=== PATIENT | male | born 1980 | race Caucasian/White ===

== ENCOUNTER 2019-02-14 14:19 | Emergency (ER) | payer MEDICAID, OTHER ==
[~2019-02-14] VITALS: Ht 170.2 cm; Wt 114.4 kg
[2019-02-14 14:38] VITALS: BP 154/80; RESP 67; Ht 170.2 cm; Wt 114.4 kg
[2019-02-14] MEDS ORDERED: SULF1TAB31 PO (14:58)
[2019-02-14] MEDS ORDERED: CEPH-443 PO (14:58)
--- NOTE | 2019-02-14 15:13 | ERD ---
ER Documentation Chief Complaint Chief Complaint pt has bumps on head causing pain HPI 38-year-old male presenting with a bump on the back of his head. He states he has had multiple of these bumps and he has been lancing and with clean razors however one appears to have gotten infected. He is a meth user currently taking methadone. No other medical problems. NKDA. Surgical he history denies. Social history denies ROS All systems reviewed and are negative except as per history of present illness. Medications Home Meds Active Scripts Cephalexin* (Keflex*) 500 Mg Capsule, 500 MG PO QID for 7 Days, CAP Prov:AGUILA TAVERAS PA-C 02/14/19 Sulfamethoxazole/Trimethoprim* (Bactrim Ds* Tablet) 1 Each Tablet, 1 TAB PO BID, #14 TAB Prov:AGUILA TAVERAS PA-C 02/14/19 Allergies Allergies: Coded Allergies: No Known Allergy (Unverified , 02/14/19) PMhx/Soc Hx Alcohol Use: No Hx Substance Use: No Hx Tobacco Use: No FmHx Family History: No diabetes, No coronary disease, No other Physical Exam Vitals Vital Signs Date Temp Pulse Resp B/P (MAP) Pulse Ox O2 O2 Flow FiO2 Time Delivery Rate 02/14/19 98.7 67 154/80 100 14:38 (104) Physical Exam GENERAL: The patient is well-appearing, well-nourished, in no acute distress HEENT: Atraumatic. Conjunctivae are pink. Pupils equal, round, and reactive to light. There is no scleral icterus. Tympanic membranes clear bilaterally. Oropharynx clear. CHEST: Clear to auscultation bilaterally. There are no rales, wheezes or rhonchi. HEART: Regular rate and rhythm. No murmurs, clicks, rubs or gallops. SKIN: Erythematous site noted to the occipital scalp with mild induration. No fluctuance. Procedures/MDM MDM: 38-year-old male presenting with folliculitis. Patient will be discharged with antibiotics. I have low suspicion for life-threatening rash. I have low suspicion for deep tracking infection. Patient is discharged with strict ER precautions and told to follow-up with primary care within 1 to 2 days for close evaluation. Patient is told if symptoms change or worsen to return to the ER. All questions answered at discharge Departure Diagnosis: Primary Impression: Folliculitis Condition: Stable Patient Instructions: Folliculitis Referrals: [facility] YOU HAVE RECEIVED A MEDICAL SCREENING EXAM AND THE RESULTS INDICATE THAT YOU DO NOT HAVE A CONDITION THAT REQUIRES URGENT TREATMENT IN THE EMERGENCY DEPARTMENT. FURTHER EVALUATION AND TREATMENT OF YOUR CONDITION CAN WAIT UNTIL YOU ARE SEEN IN YOUR DOCTORS OFFICE WITHIN THE NEXT 1-2 DAYS. IT IS YOUR RESPONSIBILITY TO MAKE AN APPOINTMENT FOR FOLOW-UP CARE. IF YOU HAVE A PRIMARY DOCTOR --you should call your primary doctor and schedule an appointment IF YOU DO NOT HAVE A PRIMARY DOCTOR YOU CAN CALL OUR PHYSICIAN REFERRAL HOTLINE AT IF YOU CAN NOT AFFORD TO SEE A PHYSICIAN YOU CAN CHOSE FROM THE FOLLOWING [facility] [address] [facility] [address] [facility] [address] [facility] [address] [facility] [address] [facility]. [facility] [address] Additional Instructions: FOLLOW UP WITH YOUR PRIMARY CARE PHYSICIAN TOMORROW.Return to this facility if you are not improving as expected. AGUILA TAVERAS PA-C Feb 14, 2019 15:13
== END 2019-02-14 15:22 | disposition home or self-care (01) ==
LOC: FTE 14:19
DX: L73.9 Follicular disorder, unspecified (principal)
CPT/HCPCS: 99283

== ENCOUNTER 2019-03-05 19:07 | Emergency (ER) | payer OTHER ==
[~2019-03-05] VITALS: Ht 170.2 cm; Wt 120.4 kg
[~2019-03-05 19:07] MED LIST: CEPH-443 PO; SULF1TAB31 PO
[2019-03-05 19:12] VITALS: BP 161/79; PULSE 89; RESP 18; Ht 170.2 cm; Wt 120.4 kg
[2019-03-05] MEDS ORDERED: DIPHTH/TET/ACEL PERTUSS (ADULT) 0.5 ML VIAL IM* ONE (21:00)
[2019-03-05] MEDS ORDERED: LIDOCAINE 1% (MPF) 5 ML VIAL INFIL ONE (21:00)
--- NOTE | 2019-03-06 00:17 | ERD ---
ER Documentation Chief Complaint Chief Complaint R thumb lac today HPI History of Present Illness: 39-year-old male who reports a past medical history of asthma coming in today with complaint of laceration to right thumb that occurred at approximately 1830. Patient reports this happened at approximately 1830 a.m. while he was asleep. Patient reports being incoherent and excellently cutting himself with a razor blade. Patient reports tetanus status is unknown. Patient currently taking methadone due to heroin addiction. Bleeding controlled. At home pharmacological/nonpharmacological treatment for symptoms: Denies Denies social concerns; Denies recent foreign travel ROS All systems reviewed and are negative except as per history of present illness. Medications Home Meds Active Scripts Cephalexin* (Keflex*) 500 Mg Capsule, 500 MG PO QID for 7 Days, CAP Prov:AGUILA TAVERAS PA-C 02/14/19 Sulfamethoxazole/Trimethoprim* (Bactrim Ds* Tablet) 1 Each Tablet, 1 TAB PO BID, #14 TAB Prov:AGUILA TAVERAS PA-C 02/14/19 Allergies Allergies: Coded Allergies: No Known Allergy (Unverified , 02/14/19) PMhx/Soc Hx Respiratory Disorders: Yes (ASTHMA) Hx Psychiatric Problems: Yes (PARANOID SCHIZOPHRENIA) Hx Alcohol Use: No Hx Substance Use: No Hx Tobacco Use: No Smoking Status: Never smoker FmHx Family History: diabetes, coronary disease Physical Exam Vitals Vital Signs Date Temp Pulse Resp B/P (MAP) Pulse Ox O2 O2 Flow FiO2 Time Delivery Rate 03/05/19 97.5 89 18 161/79 98 19:12 (106) Physical Exam Const: No acute distress Head: Atraumatic Eyes: Normal Conjunctiva ENT: Normal External Ears, Nose and Mouth. Neck: Full range of motion. No meningismus. Resp: Clear to auscultation bilaterally Cardio: Regular rate and rhythm, no murmurs Abd: Soft, non tender, non distended. Normal bowel sounds Skin: No petechiae or rashes, 2.5 cm laceration noted to palmar aspect of right thumb, patient able to bend and flex finger without difficulty, neurovascularly intact, bleeding controlled Back: No midline or flank tenderness Ext: No cyanosis, or edema Neur: Awake and alert Psych: Normal Mood and Affect Results 24 hrs Current Medications Medications Dose Sig/Aydin Start Time Status Last (Trade) Ordered Route PRN Stop Time Admin Dose Reason Admin Diphtheria/ 0.5 ml ONCE ONCE 03/05/19 DC 03/05/19 Tetanus/Acell IM* 21:00 20:51 Pertussis 03/05/19 21:01 (Adacel) Lidocaine 5 ml ONCE ONCE 03/05/19 DC (Xylocaine INFIL 21:00 1% (Mpf)) 03/05/19 21:01 Procedures/MDM ED course includes a thorough examination and history. Medications: Tdap Imaging: Thumb x-ray Labs: Low suspicion for life-threatening medical emergency. Low suspicion for emergency THAT requires hospitalization or immediate surgical intervention. Low suspicion for tendon injury. Otherwise healthy patient presenting with constellation of symptoms likely representing uncomplicated laceration repair as characterized by history, physical exam findings, radiology findings. Radiology reports reviewed, per radiology report, no foreign bodies noted and an x-ray is unremarkable. Laceration Repair by me: Anesthesia: 1% lidocaine locally Location: Palmar aspect of right thumb Tendon/Joint/Nerves: No injury Foreign body: None detected after copious irrigation and exploration Technique: Simple Interrupted Sutures, 5-0, #4 SUTURES Complexity: No subcutaneous sutures/mucosal repair/edge excision Post Closure Length: 2.5 cm Patient's bleeding was easily controlled in the department and there is no indication of anemia. No evidence of compartment syndrome, neurologic injury, vascular injury, open joint, tendon laceration, or foreign body. Patient is appropriate for outpatient follow up. 48 hour wound check. Scar minimization instructions given. Patient reassessment 2215: Laceration repair completed. Education given for suture removal, and signs of infection. Education provided for abnormal elevated blood pressure reading; patient verbalizes understanding of instructions to follow with primary care doctor for further evaluation and plan of care for elevated blood pressure . Patient is asymptomatic to hypertension, no signs of hypertensive emergency/urgency. No respiratory distress, otherwise relatively well appearing and nontoxic. Disposition given. Patient educated on diagnoses, prescriptions, follow-up care, return precautions. Strict return precautions given for worsening condition; questions answered discharge. Disposition for discharge with followup in 2 days with PCP/clinic. Departure Diagnosis: Primary Impression: Laceration Additional Impressions: Blood pressure elevated without history of HTN Abnormal blood pressure Condition: Stable Patient Instructions: Hypertension, To Be Confirmed, Laceration, Hand Referrals: [facility] YOU HAVE RECEIVED A MEDICAL SCREENING EXAM AND THE RESULTS INDICATE THAT YOU DO NOT HAVE A CONDITION THAT REQUIRES URGENT TREATMENT IN THE EMERGENCY DEPARTMENT. FURTHER EVALUATION AND TREATMENT OF YOUR CONDITION CAN WAIT UNTIL YOU ARE SEEN IN YOUR DOCTORS OFFICE WITHIN THE NEXT 1-2 DAYS. IT IS YOUR RESPONSIBILITY TO MAKE AN APPOINTMENT FOR FOLOW-UP CARE. IF YOU HAVE A PRIMARY DOCTOR --you should call your primary doctor and schedule an appointment IF YOU DO NOT HAVE A PRIMARY DOCTOR YOU CAN CALL OUR PHYSICIAN REFERRAL HOTLINE AT IF YOU CAN NOT AFFORD TO SEE A PHYSICIAN YOU CAN CHOSE FROM THE FOLLOWING [facility] [address] [facility] [address] [facility] [facility] [address] [facility] [address] [facility] [facility] [address] [facility] [facility]. [address] [facility] [facility] YOU HAVE RECEIVED A MEDICAL SCREENING EXAM AND THE RESULTS INDICATE THAT YOU DO NOT HAVE A CONDITION THAT REQUIRES URGENT TREATMENT IN THE EMERGENCY DEPARTMENT. FURTHER EVALUATION AND TREATMENT OF YOUR CONDITION CAN WAIT UNTIL YOU ARE SEEN IN YOUR DOCTORS OFFICE WITHIN THE NEXT 1-2 DAYS. IT IS YOUR RESPONSIBILITY TO MAKE AN APPOINTMENT FOR FOLOW-UP CARE. IF YOU HAVE A PRIMARY DOCTOR --you should call your primary doctor and schedule and appointment IF YOU DO NOT HAVE A PRIMARY DOCTOR YOU CAN CALL OUR PHYSICIAN REFERRAL HOTLINE AT . IF YOU CAN NOT AFFORD TO SEE A PHYSICIAN YOU CAN CHOSE FROM THE FOLLOWING [facility] INSTITUTIONS: [facility] [address] [place] [address] [facility] [address] [place] [address] [facility] [address] [place] [address] Additional Instructions: Thank you very much for allowing us to participate in your care. Your health and safety is our top priority at [facility]. It is important to read all discharge instructions and education provided in your discharge packet. *Wound recheck in 2 to 3 days to reevaluate for infection. Suture removal in 7 days.* *It is very important to see your primary care doctor/community clinic for reevaluation of your blood pressure reading if your blood pressure is consistently being 160s systolic, you may need to be placed on hypertension medication.* Call your primary care doctor TOMORROW for an appointment during the next 2-4 days and bring all the information . If the symptoms get worse and your provider is unavailable, return to the Emergency Department immediately. SCOTT VERDE NP March 06, 2019 00:17
== END 2019-03-05 22:34 | disposition home or self-care (01) ==
LOC: FTE 19:07
DX: S61.011A Laceration without foreign body of right thumb without damage to nail, initial encounter (principal); J45.909 Unspecified asthma, uncomplicated; R03.0 Elevated blood-pressure reading, without diagnosis of hypertension; W26.8XXA Contact with other sharp object(s), not elsewhere classified, initial encounter; Y92.9 Unspecified place or not applicable; Z23 Encounter for immunization
CPT/HCPCS: 12001; 73140; 90471; 90715; Z7502; Z7610

== ENCOUNTER 2019-06-19 20:34 | Emergency (ER) | payer OTHER ==
[~2019-06-19] VITALS: Ht 170.2 cm; Wt 119.7 kg
[~2019-06-19 20:34] MED LIST changes: +CLIN300C10 PO; +NAPR-985 PO
[2019-06-19 20:39] VITALS: BP 157/92; PULSE 81; RESP 16; Ht 170.2 cm; Wt 119.7 kg
[2019-06-19] MEDS ORDERED: IBUPROFEN 600 MG TAB PO ONE (22:30)
[2019-06-19] MEDS ORDERED: CLINDAMYCIN 300 MG CAP PO ONE (22:30)
== END 2019-06-19 23:04 | disposition home or self-care (01) ==
LOC: FTE 20:34
DX: L03.012 Cellulitis of left finger (principal); J45.909 Unspecified asthma, uncomplicated; F17.210 Nicotine dependence, cigarettes, uncomplicated
CPT/HCPCS: Z7502; Z7610; 99283